=== PATIENT | female | born 1980 | race Hispanic/Latino ===

== ENCOUNTER 2025-04-20 09:08 | Outpatient (CLI) | payer OTHER | END 2025-04-20 09:09 | disposition home or self-care (01) | LOC: SCSMRI 09:08 | PROVIDERS: ATTEND Nurse Practitioner Family | DX: K76.0 Fatty (change of) liver, not elsewhere classified (principal); K80.20 Calculus of gallbladder without cholecystitis without obstruction; K83.8 Other specified diseases of biliary tract | CPT/HCPCS: 74183; 76376; S8037 ==